=== PATIENT | female | born 1995 ===

== ENCOUNTER 2016-11-10 12:00 | Emergency (ER) | payer MEDICAID, OTHER ==
[2016-11-10 12:00] VITALS: BMI 34.0
--- NOTE | 2016-11-10 13:43 | C.PDOC ---
History Of Present Illness 21 yr old female who is 26 weeks , presents to the ER stating last night she started feeling body aches, sore throat, cough and had a tactile fever. Woke up this morning and felt dizzy and light headed. Patient states initially she thought it was related to allergies so took a Zyrtec yesterday but none today. Patient denies chest pain, SOB, nausea, vomiting, abdominal pain , diarrhea, vaginal bleeding, weakness or numbness. Time Seen by Provider: 11/10/16 12:09 Chief Complaint (Nursing): Dizziness/Lightheaded History Per: Patient History/Exam Limitations: no limitations Onset/Duration Of Symptoms: Days (1) Past Medical History Reviewed: Historical Data, Nursing Documentation, Vital Signs Vital Signs: Last Vital Signs Temp 98.3 F 11/10/16 13:57 Pulse 109 H 11/10/16 13:57 Resp 20 11/10/16 13:57 BP 96/62 L 11/10/16 13:57 Pulse Ox 96 11/10/16 14:04 - [facility] Procedures DELIVERY OF PRODUCTS OF CONCEPTION, EXTERNAL APPROACH (08/25/15) MONITORING OF POC, CARDIAC RATE, ORACLE FORMS DEVELOPER APPROACH (08/25/15) REPAIR PERINEUM SKIN, EXTERNAL APPROACH (08/25/15) Family History: States: No Known Family Hx - Social History Hx Tobacco Use: No Hx Alcohol Use: No Hx Substance Use: No - Immunization History Hx Tetanus Toxoid Vaccination: No Hx Influenza Vaccination: Yes Hx Pneumococcal Vaccination: No Review Of Systems Except As Marked, All Systems Reviewed And Found Negative. Constitutional: Positive for: Fever (Tactile), Other ((+) Body aches) ENT: Positive for: Throat Pain (Sore throat ) Cardiovascular: Positive for: Light Headedness. Negative for: Chest Pain Respiratory: Positive for: Cough. Negative for: Shortness of Breath Gastrointestinal: Negative for: Nausea, Vomiting, Abdominal Pain, Diarrhea Genitourinary: Negative for: Vaginal Bleeding Neurological: Positive for: Dizziness. Negative for: Weakness, Numbness Physical Exam - Physical Exam Appears: Well, Non-toxic, No Acute Distress Skin: Warm, Dry, No Rash Head: Atraumatic, Normacephalic Oral Mucosa: Moist Throat: Normal, No Erythema, No Exudate, No Drooling Neck: Normal, Normal ROM, Supple Chest: Symmetrical, No Tenderness Cardiovascular: Rhythm Regular, No Murmur Respiratory: Normal Breath Sounds, No Rales, No Rhonchi, No Wheezing Gastrointestinal/Abdominal: Normal Exam, Soft, No Tenderness, No Guarding, No Rebound Extremity: Normal ROM, No Swelling Neurological/Psych: Oriented x3, Normal Speech ED Course And Treatment O2 Sat by Pulse Oximetry: 96 Disposition - Disposition Disposition: HOME/ ROUTINE Disposition Time: 13:40 Condition: STABLE Prescriptions: Dextromethorphan HBr [Daytime Cough] 20 mg PO QID #250 syrup Oseltamivir Phosphate [Tamiflu] 75 mg PO BID #10 capsule Instructions: Viral Syndrome (ED), Influenza (ED) Forms: Work Excuse Print Language: KYRGYZ - Clinical Impression Clinical Impression: Influenza-like illness, - 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 - Scribe Statement The provider has reviewed the documentation as recorded by the Scribe Bridgette Rubi All medical record entries made by the Scribe were at my direction and personally dictated by me. I have reviewed the chart and agree that the record accurately reflects my personal performance of the history, physical exam, medical decision making, and the department course for this patient. I have also personally directed, reviewed, and agree with the discharge instructions and disposition.
[2016-11-10 13:58] VITALS: BP 96/62; PULSE 109; RESP 20; TEMP 98.3
[2016-11-10 14:03] VITALS: O2SAT 96
== END 2016-11-10 14:20 | disposition home or self-care (01) ==
LOC: C.ER 12:00
DX: O98.812 Other maternal infectious and parasitic diseases complicating pregnancy, second trimester (principal); J11.1 Influenza due to unidentified influenza virus with other respiratory manifestations; Z3A.26 26 weeks gestation of pregnancy